=== PATIENT | male | born 2000 | race Caucasian/White ===

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

== ENCOUNTER 2019-10-09 20:41 | Emergency (ER) | payer OTHER ==
[~2019-10-09] VITALS: Ht 180.3 cm; Wt 95.3 kg
[2019-10-09 21:00] VITALS: BP 110/68
--- NOTE | 2019-10-09 21:00 | NUR ---
TO BED # 08 AMBULATORY
--- NOTE | 2019-10-09 21:15 | NUR ---
19 Y/O MALE C/O COUGH, FEVER, BODY ACHES, COLD SX X YESTERDAY. RATES PAIN 10/10 AND DESCRIBE IT ACHING. HAS CHEST PAIN EVERYTIME HE COUGHS. LUNG SOUNDS CLEAR ALL THORUGHOUT. NO RESP DISTRESS NOTED. NO SOB. NO USE OF ACCESSORY MUSCLE. VSS. SORE THROAT PRESENT. RUNNY NOSE PRESENT. EYES ARE RED, WATERY BILAT. PT STATES HIS EYES FEEL LIKE THEY ARE BURNING. ABD IS SOFT, ROUND, BS ACTIVE. PT STATES HES CONSTIPATED. TOOK DOSE OF MTROIN AT 2000 TODAY. PT STATES HE GOT HIS FLU SHOT. TEMP AT TRIAGE IS 100.0 ORAL. NKA NO PMH.
--- NOTE | 2019-10-09 21:37 | NUR ---
KARIE SURESH AT BEDSIDE TO EVAL PT.
[2019-10-09] MEDS ORDERED: ACETAMINOPHEN EXTRA STRENGTH 500 MG TAB PO ONE (21:40)
[2019-10-09 22:32] VITALS: BP 110/68
--- NOTE | 2019-10-09 22:32 | NUR ---
Patient discharged with v/s stable. Written and verbal after care instructions given and explained. Patient alert, oriented and verbalized understanding of instructions. Ambulatory with steady gait. All questions addressed prior to discharge. ID band removed. Patient advised to follow up with PMD. Rx of PROMETHAZINE, TAMIFLU, IBUPROFEN, AND OPTHALMIC EYE DROPS. given. Patient educated on indication of medication including possible reaction and side effects. Opportunity to ask questions provided and answered.
== END 2019-10-09 22:32 | disposition home or self-care (01) ==
LOC: MED 20:41
DX: B34.9 Viral infection, unspecified (principal)
CPT/HCPCS: 99283

== ENCOUNTER 2020-01-05 19:44 | Emergency (ER) | payer OTHER ==
[~2020-01-05] VITALS: Ht 180.3 cm; Wt 98.4 kg
[2020-01-05 20:03] VITALS: BP 128/76
[2020-01-05 21:25] VITALS: BP 128/76
== END 2020-01-05 21:25 | disposition home or self-care (01) ==
LOC: MED 19:44
DX: J06.9 Acute upper respiratory infection, unspecified (principal)
CPT/HCPCS: 87804; 99283

== ENCOUNTER 2020-08-25 17:46 | Emergency (ER) | payer OTHER, SELFPAY ==
[~2020-08-25] VITALS: Ht 180.3 cm; Wt 102.1 kg
[2020-08-25 17:48] VITALS: BP 144/89
[2020-08-25 18:40] VITALS: BP 144/89
== END 2020-08-25 18:42 | disposition home or self-care (01) ==
LOC: MED 17:46
DX: U07.1 COVID-19 (principal); J34.89 Other specified disorders of nose and nasal sinuses; R05 Cough
CPT/HCPCS: 99283; U0003

== ENCOUNTER 2020-12-22 19:20 | Emergency (ER) | payer OTHER, SELFPAY ==
[~2020-12-22] VITALS: Ht 180.3 cm; Wt 97.1 kg
[2020-12-22 19:34] VITALS: BP 137/91
--- NOTE | 2020-12-22 19:42 | NUR ---
20 Y/O M FROM HOME C/O COUGH AND ALLERGIES FOR 4 DAYS. PT HAD AN EMESIS EPISODE, CURRENTLY NO NAUSEA. PT IS HAVING PRODUCTIVE COUGH, GREEN THICK MUCOUS. NOSE IS RUNNING. NO SOB OR CHEST PAIN. DENIES ANY EXPOSURE TO COVID. TESTED POSITIVE FOR COVID IN 08/21/20. NO PMH. STATES HE HAS BEEN TAKING TYLENOL FOR COUGH. PT STATES HE IS LIGHTHEADED AND STATED HE ALMOST FAINTED YESTERDAY. NO SYNCOPE. PT STATES HE HAS NO CONSTIPATION OR DIARRHEA. LAST BM 12/22/20 AM, SOFT EASY TO PASS. BURNING SENSATION WITH URINATION. STARTED AROUND YESTERDAY AFTERNOON.
[2020-12-22] MEDS ORDERED: ROBAC PO (20:56)
[2020-12-22 22:04] VITALS: BP 128/87
--- NOTE | 2020-12-22 22:04 | NUR ---
Patient discharged with v/s stable. Written and verbal after care instructions given and explained. Patient alert, oriented and verbalized understanding of instructions. Ambulatory with steady gait. All questions addressed prior to discharge. ID band removed. Patient advised to follow up with PMD. Rx of GUAIFENSIN given. Patient educated on indication of medication including possible reaction and side effects. Opportunity to ask questions provided and answered.
== END 2020-12-22 22:04 | disposition home or self-care (01) ==
LOC: MED 19:20
DX: J06.9 Acute upper respiratory infection, unspecified (principal)
CPT/HCPCS: 71045; 99283

== ENCOUNTER 2021-03-22 16:21 | Emergency (ER) | payer OTHER, SELFPAY ==
[~2021-03-22] VITALS: Ht 180.3 cm; Wt 107.0 kg
[~2021-03-22 16:21] MED LIST: ROBAC PO
[2021-03-22 16:44] VITALS: BP 133/87
--- NOTE | 2021-03-22 17:00 | NUR ---
PT AMBULATED TO BED 4, STEADY GAIT.
--- NOTE | 2021-03-22 17:04 | NUR ---
20 Y/M PRESENTS TO ED FOR SORE THROAT AND FEVER X 1 WEEK ( T MAX 100.1). PT ALSO REPORTING COUGH, UNRELIEVED BY TESSALON. PMH- DENIES NKDA RX- TESSALON
--- NOTE | 2021-03-22 17:44 | NUR ---
KARIE Salas at the bedside evaluating patient
[2021-03-22] MEDS ORDERED: AZIT250T11 PO (17:50)
[2021-03-22] MEDS ORDERED: PROM473S5 PO (17:50)
--- NOTE | 2021-03-22 17:55 | NUR ---
Patient discharged with v/s stable. Written and verbal after care instructions given and explained. Patient alert, oriented and verbalized understanding of instructions. Ambulatory with steady gait. All questions addressed prior to discharge. ID band removed. Patient advised to follow up with PMD. Rx of Azithryomycin, Promethazine/DM given. Patient educated on indication of medication including possible reaction and side effects. Opportunity to ask questions provided and answered.
== END 2021-03-22 17:55 | disposition home or self-care (01) ==
LOC: MED 16:21
DX: J06.9 Acute upper respiratory infection, unspecified (principal); Z79.899 Other long term (current) drug therapy; Z90.49 Acquired absence of other specified parts of digestive tract
CPT/HCPCS: 99283

== ENCOUNTER 2021-05-04 17:57 | Emergency (ER) | payer OTHER ==
[~2021-05-04] VITALS: Ht 182.9 cm; Wt 111.1 kg
[~2021-05-04 17:57] MED LIST changes: +AZIT250T11 PO; +PROM473S5 PO
[2021-05-04 18:03] VITALS: BP 139/90
--- NOTE | 2021-05-04 18:07 | NUR ---
Patient ambulated with steady gait to bed 2.
--- NOTE | 2021-05-04 18:10 | NUR ---
PT STATING HE IS HAVING CHEST DISCOMFORT, ESPECIALLY AFTER EATING, HE FEELS LIKE SOMETHING IS STUCK IN HIS CHEST SINCE SATURDAY. PATIENT ALSO STATES HE IS STRUGGLING WITH ANXIETY. DENIES ANY SOB. NO N/V/D NO PMH NKDA
[2021-05-04] MEDS ORDERED: LORazepam 1 MG TAB PO ONE (18:35)
--- NOTE | 2021-05-04 19:13 | NUR ---
REPORT RECEIVED FROM ENE MARY FOR CONTINUITY OF CARE.
[2021-05-04 19:16] LABS: BASOPHILS % (AUTO) 0.4 % (0.0-2.0); EOSINOPHILS # (AUTO) 0.1 K/uL (0-0.4); EOSINOPHILS % (AUTO) 0.6 % (0.0-4.0); HEMATOCRIT 46.8 % (36-52); LYMPHOCYTES # (AUTO) 1.6 K/uL (2.0-11.5); LYMPHOCYTES % (AUTO) 20.8 % (20.5-51.1); MEAN CORPUSCULAR HEMOGLOBIN 28 pg (27-31); MEAN CORPUSCULAR HGB CONC 34 g/dL (33-37); MEAN CORPUSCULAR VOLUME 82.9 fL (80-94); MONOCYTES # (AUTO) 0.5 K/uL (0.8-1.0); MONOCYTES % (AUTO) 6.9 % (1.7-9.3); NEUTROPHILS # (AUTO) 5.6 K/uL (1.8-7.7); NEUTROPHILS % (AUTO) 71.3 % (42.2-75.2); PLATELET COUNT (AUTO) 240 K/uL (140-450); RED BLOOD CELL COUNT(AUTO) 5.64 MIL/uL (4.20-6.10); RED CELL DISTRIBUTION WIDTH 12.8 % (11.6-13.7); WHITE BLOOD COUNT (AUTO) 7.9 K/uL (4.8-10.8)
[2021-05-04 19:31] LABS: ANION GAP 9.1 (8-16); CARBON DIOXIDE 29.1 mmol/L (21-32); CREATININE 1.1 mg/dL (0.6-1.3); POTASSIUM 4.2 mmol/L (3.5-5.1)
[2021-05-04] MEDS ORDERED: ATA25 PO (19:41)
--- NOTE | 2021-05-04 19:50 | NUR ---
Patient discharged with v/s stable. Written and verbal after care instructions given and explained. Patient alert, oriented and verbalized understanding of instructions. Ambulatory with steady gait. All questions addressed prior to discharge. ID band removed. Patient advised to follow up with PMD. Rx of ATARAX HCL given. Patient educated on indication of medication including possible reaction and side effects. Opportunity to ask questions provided and answered. WORK NOTE PROVIDED.
== END 2021-05-04 19:50 | disposition home or self-care (01) ==
LOC: MED 17:57
DX: R07.9 Chest pain, unspecified (principal)
CPT/HCPCS: 36415; 71045; 80048; 85025; 85379; 93005; 99285

== ENCOUNTER 2021-06-15 18:04 | Emergency (ER) | payer OTHER ==
[~2021-06-15] VITALS: Ht 180.3 cm; Wt 98.9 kg
[~2021-06-15 18:04] MED LIST changes: +ATA25 PO
[2021-06-15 18:34] VITALS: BP 150/78
--- NOTE | 2021-06-15 18:37 | NUR ---
TENT 1
[2021-06-15] MEDS ORDERED: FLUT0.0548 NS (19:23)
--- NOTE | 2021-06-15 19:42 | NUR ---
Patient discharged with v/s stable. Written and verbal after care instructions given and explained. Patient alert, oriented and verbalized understanding of instructions. Ambulatory with steady gait. All questions addressed prior to discharge. ID band removed. Patient advised to follow up with PMD. Rx of FLUTICASONE given. Patient educated on indication of medication including possible reaction and side effects. Opportunity to ask questions provided and answered.
== END 2021-06-15 19:42 | disposition home or self-care (01) ==
LOC: MED 18:04
DX: J02.9 Acute pharyngitis, unspecified (principal)
CPT/HCPCS: 99283

== ENCOUNTER 2021-10-30 18:57 | Emergency (ER) | payer OTHER ==
[~2021-10-30] VITALS: Ht 180.3 cm; Wt 102.1 kg
[~2021-10-30 18:57] MED LIST changes: +FLUT0.0548 NS
[2021-10-30 19:21] VITALS: BP 147/95
--- NOTE | 2021-10-30 19:24 | NUR ---
novel swabbed at this time
[2021-10-30] MEDS ORDERED: ACET-10509 PO (21:56)
[2021-10-30] MEDS ORDERED: SUD30 PO (21:56)
[2021-10-30] MEDS ORDERED: GUAI237L61 PO (21:56)
--- NOTE | 2021-10-30 22:00 | NUR ---
RESULTS BACK AND NOTED BY ERMD AND FOR D/C
[2021-10-30 22:30] VITALS: BP 123/78
--- NOTE | 2021-10-30 22:30 | NUR ---
Patient discharged with v/s stable. Written and verbal after care instructions given and explained. Patient alert, oriented and verbalized understanding of instructions. Ambulatory with steady gait. All questions addressed prior to discharge. ID band removed. Patient advised to follow up with PMD. Rx of TYLENOL, SUDAFED, ROBITUSSIN given. Patient educated on indication of medication including possible reaction and side effects. Opportunity to ask questions provided and answered.
== END 2021-10-30 22:30 | disposition home or self-care (01) ==
LOC: MED 18:57
DX: J06.9 Acute upper respiratory infection, unspecified (principal); Z20.822 Contact with and (suspected) exposure to COVID-19; Z79.899 Other long term (current) drug therapy
CPT/HCPCS: 99283

== ENCOUNTER 2023-11-05 14:33 | Emergency (ER) | payer OTHER ==
[~2023-11-05] VITALS: Ht 180.3 cm; Wt 103.4 kg
[~2023-11-05 14:33] MED LIST changes: +ACET-10509 PO; +FLUT0.0547 NS; -FLUT0.0548 NS; +GUAI237L61 PO; +SUD30 PO
[2023-11-05 14:52] VITALS: BP 112/73; PULSE 113; RESP 18; TEMP 98.1; O2SAT 98
[2023-11-05] MEDS ORDERED: ROB PO (15:20)
[2023-11-05] MEDS ORDERED: CIPR10SU LEFT EAR (15:20)
== END 2023-11-05 15:30 | disposition home or self-care (01) ==
LOC: MED 14:33
DX: H61.22 Impacted cerumen, left ear (principal); H60.92 Unspecified otitis externa, left ear; R05.9 Cough, unspecified; Z79.899 Other long term (current) drug therapy; Z79.2 Long term (current) use of antibiotics
CPT/HCPCS: 99283

== ENCOUNTER 2023-12-04 17:11 | Emergency (ER) | payer OTHER ==
[~2023-12-04] VITALS: Ht 180.3 cm; Wt 108.0 kg
[~2023-12-04 17:11] MED LIST changes: +CIPR10SU LEFT EAR; +ROB PO
[2023-12-04 17:43] VITALS: BP 126/74; PULSE 103; RESP 20; TEMP 98.1; O2SAT 98
[2023-12-04] MEDS ORDERED: AMOX500C25 PO (18:02)
== END 2023-12-04 18:20 | disposition home or self-care (01) ==
LOC: MED 17:11
DX: H66.92 Otitis media, unspecified, left ear (principal); Z79.899 Other long term (current) drug therapy
CPT/HCPCS: 99283